=== PATIENT | female | born 1930 | race African-American/Black ===

== ENCOUNTER 2018-08-05 11:59 | Inpatient (IN) | payer OTHER, MEDICAID ==
[~2018-08-05] VITALS: Ht 167.6 cm; Wt 120.2 kg
[2018-08-05] MEDS ORDERED: AMLO2.5T45 PO (12:08)
[2018-08-05] MEDS ORDERED: SIMV5TAB53 PO (12:08)
[2018-08-05] MEDS ORDERED: NEOAPJ IM (12:08)
[2018-08-05] MEDS ORDERED: BENA5TAB6 PO (12:08)
[2018-08-05] MEDS ORDERED: SODIUM CHLORIDE 0.9% 1,000 ML IV ONE (14:25)
[2018-08-05 15:23] LABS: BASOPHILS % 0.4 % (0.0-2.0); EOSINOPHILS % 0.6 % (0.0-5.0); HEMATOCRIT. 39.7 % (36.0-48.0); LYMPHOCYTES % 18.5 % (20.0-50.0); MEAN CORPUSCULAR HEMOGLOBIN 29.5 pg (28.0-32.0); MEAN CORPUSCULAR VOLUME 89.8 fL (81.0-99.0); MONOCYTES % 6.9 % (2.0-8.0); NEUTROPHILS % 73.6 % (40.0-76.0); PLATELET 264 x1000/uL (130-400); RED BLOOD CELL COUNT 4.43 mill/uL (4.2-5.4); RED CELL DISTRIBUTION WIDTH 15.6 % (11.6-14.6)
[2018-08-05 15:26] LABS: CHLORIDE 107 mEq/L (98-107)
[2018-08-05 15:44] LABS: PARTIAL THROMBOPLASTIN TIME 24.9 sec (23.4-31.0); PROTHROMBIN TIME 10.4 sec (9.1-11.1)
[2018-08-05 18:21] LABS: CLARITY URINE CLEAR (CLEAR); COLOR URINE DARK YELLOW (YELLOW); KETONES URINE TRACE (NEGATIVE); LEUKOCYTE ESTERASE URINE NEGATIVE (NEGATIVE); NITRITE URINE NEGATIVE (NEGATIVE); OCCULT BLOOD URINE NEGATIVE (NEGATIVE); PH URINE 5.5 (4.5-8.0); PROTEIN URINE 1+ (NEGATIVE); SPECIFIC GRAVITY URINE 1.026 (1.005-1.030)
[2018-08-05 22:14] VITALS: BP 155/66
[2018-08-05] MEDS ORDERED: HYDR-4135 PO (22:25)
[2018-08-05] MEDS ORDERED: ALLO100T PO (22:33)
[2018-08-06] VITALS: BP 159/75
[2018-08-06 04:00] VITALS: BP 148/76
[2018-08-06 07:14] LABS: T4 FREE 0.65 ng/dL (0.76-1.46)
[2018-08-06] MEDS: ALLOPURINOL 100 MG TABLET PO SCH (08:50)
[2018-08-06] MEDS: AMLODIPINE 10MG TABLET PO SCH (08:51)
[2018-08-06] MEDS: HYDRALAZINE HCL 50MG TABLET PO SCH ×2 (08:52→21:18)
[2018-08-06] MEDS: BENAZEPRIL 10MG TABLET PO SCH (08:52)
[2018-08-06] MEDS ORDERED: MEDICATION NOT ON FORMULARY EA (Simvastatin 20 MG) PO SCH (09:00)
[2018-08-06 10:31] VITALS: BP 156/66
[2018-08-06 12:00] VITALS: BP_SYST 132; BP_SYST 138; BP_DIAS 63; BP_DIAS 68
[2018-08-06 16:00] VITALS: BP 126/61
[2018-08-06 16:47] LABS: HEMATOCRIT 39.1 % (36.0-48.0); HEMOGLOBIN 12.7 g/dL (12.0-16.0); MEAN CORPUSCULAR HEMOGLOBIN 29.3 pg (28.0-32.0); MEAN CORPUSCULAR VOLUME 89.9 fL (81.0-99.0); PLATELET 248 x1000/uL (130-400); RED BLOOD CELL COUNT 4.35 mill/uL (4.2-5.4)
[2018-08-06] MEDS: HYDROCORTISONE 20MG TABLET PO SCH (17:14)
[2018-08-06] MEDS ORDERED: ACETAMINOPHEN 650MG SUPP PR PRN (17:45)
[2018-08-06] MEDS ORDERED: ACETAMINOPHEN 325MG TABLET PO PRN (17:45)
[2018-08-06] MEDS ORDERED: DIPHENHYDRAMINE 50MG/ML VIAL IV PRN (17:45)
[2018-08-06] MEDS ORDERED: CLONIDINE 0.1MG TABLET PO PRN (17:45)
[2018-08-06] MEDS ORDERED: HYDROCODONE/ACETAMINOPHEN 5/325MG TABLET PO PRN (18:35)
[2018-08-06 20:00] VITALS: BP 114/63
[2018-08-06] MEDS ORDERED: ATORVASTATIN CALCIUM 10MG TABLET PO SCH (21:00)
[2018-08-07] VITALS: BP 110/61
[2018-08-07 04:00] VITALS: BP_SYST 108; BP_SYST 142; BP_SYST 143; BP_DIAS 56; BP_DIAS 65; BP_DIAS 67
[2018-08-07 06:47] LABS: HEMATOCRIT 38.9 % (36.0-48.0); HEMOGLOBIN 12.7 g/dL (12.0-16.0); MEAN CORPUSCULAR HEMOGLOBIN 29.4 pg (28.0-32.0); MEAN CORPUSCULAR VOLUME 90.2 fL (81.0-99.0); PLATELET 249 x1000/uL (130-400); RED BLOOD CELL COUNT 4.31 mill/uL (4.2-5.4); RED CELL DISTRIBUTION WIDTH 15.9 % (11.6-14.6)
[2018-08-07 08:00] VITALS: BP 138/68
[2018-08-07] MEDS: HYDROCORTISONE 20MG TABLET PO SCH ×2 (09:00→16:14)
[2018-08-07] MEDS: BENAZEPRIL 10MG TABLET PO SCH (09:00)
[2018-08-07] MEDS: AMLODIPINE 10MG TABLET PO SCH (09:30)
[2018-08-07] MEDS: ALLOPURINOL 100 MG TABLET PO SCH (09:30)
[2018-08-07] MEDS: HYDRALAZINE HCL 50MG TABLET PO SCH (09:31)
[2018-08-07 12:00] VITALS: BP 108/60
[2018-08-07 16:00] VITALS: BP 138/72
[2018-08-07 17:23] VITALS: BP 138/72
== END 2018-08-07 19:07 | disposition home or self-care (01) | DRG 73 ==
LOC: ER 11:59 → 8WST 16:39 → ENRESERV 20:29
PROVIDERS: ADMIT Internal Medicine; ATTEND Internal Medicine
DX: G90.8 Other disorders of autonomic nervous system (principal); G93.6 Cerebral edema; Z68.41 Body mass index [BMI] 40.0-44.9, adult; D32.9 Benign neoplasm of meninges, unspecified; E78.5 Hyperlipidemia, unspecified; E66.9 Obesity, unspecified; M10.9 Gout, unspecified; N18.9 Chronic kidney disease, unspecified; E78.00 Pure hypercholesterolemia, unspecified; H54.7 Unspecified visual loss; M19.90 Unspecified osteoarthritis, unspecified site; I12.9 Hypertensive chronic kidney disease with stage 1 through stage 4 chronic kidney disease, or unspecified chronic kidney disease; D49.2 Neoplasm of unspecified behavior of bone, soft tissue, and skin
CPT/HCPCS: 36415; 70551; 71045; 80048; 80061; 82533; 83036; 83880; 84146; 84439; 84443; 84484; 84550; 85027; 93005; 93970; 96360; 97162; 97166; 97535; 99285; J7030

== ENCOUNTER 2018-10-14 13:12 | Emergency (ER) | payer MEDICAID, OTHER ==
[~2018-10-14] VITALS: Ht 167.6 cm; Wt 100.0 kg
[~2018-10-14 13:12] MED LIST: AMLO2.5T45 PO; BENA5TAB6 PO; HYDR-4135 PO; SIMV5TAB53 PO
[2018-10-14] MEDS ORDERED: ONDANSETRON HCL 4MG/2ML INJ IV STA (13:37)
[2018-10-14] MEDS ORDERED: SODIUM CHLORIDE 0.9% 1,000 ML IV ONE (13:37)
[2018-10-14 14:16] LABS: BASOPHILS % 0.4 % (0.0-2.0); EOSINOPHILS % 3.5 % (0.0-5.0); HEMATOCRIT. 40.4 % (36.0-48.0); HEMOGLOBIN. 13.4 g/dL (12.0-16.0); LYMPHOCYTES % 25.3 % (20.0-50.0); MEAN CORPUSCULAR HEMOGLOBIN 29.5 pg (28.0-32.0); MEAN CORPUSCULAR VOLUME 88.8 fL (81.0-99.0); MEAN PLATELET VOLUME 9.1 fl (7.4-10.4); MONOCYTES % 8.1 % (2.0-8.0); NEUTROPHILS % 62.7 % (40.0-76.0); PLATELET 242 x1000/uL (130-400); RED BLOOD CELL COUNT 4.55 mill/uL (4.2-5.4); RED CELL DISTRIBUTION WIDTH 15.5 % (11.6-14.6)
[2018-10-14 14:24] LABS: INR 1.1; PROTHROMBIN TIME 10.9 sec (9.6-11.0)
[2018-10-14 14:25] LABS: CHLORIDE 106 mEq/L (98-107)
[2018-10-14 15:29] VITALS: BP 126/67
[2018-10-14 15:37] LABS: CLARITY URINE CLEAR (CLEAR); COLOR URINE YELLOW (YELLOW); KETONES URINE NEGATIVE (NEGATIVE); LEUKOCYTE ESTERASE URINE NEGATIVE (NEGATIVE); NITRITE URINE NEGATIVE (NEGATIVE); OCCULT BLOOD URINE NEGATIVE (NEGATIVE); PROTEIN URINE NEGATIVE (NEGATIVE); SPECIFIC GRAVITY URINE 1.016 (1.005-1.030)
== END 2018-10-14 16:31 | disposition home or self-care (01) ==
LOC: ER 13:12
DX: R11.2 Nausea with vomiting, unspecified (principal); I10 Essential (primary) hypertension; E78.00 Pure hypercholesterolemia, unspecified; M19.90 Unspecified osteoarthritis, unspecified site
CPT/HCPCS: 36415; 71045; 80053; 81003; 83605; 83880; 84484; 85025; 85610; 93005; 96361; 96374; 99284; J2405; J7030

== ENCOUNTER 2018-10-15 18:19 | Inpatient (IN) | payer OTHER ==
[~2018-10-15] VITALS: Ht 175.3 cm; Wt 95.3 kg
[2018-10-15] MEDS ORDERED: SODIUM CHLORIDE 0.9% 1,000 ML IV ONE (21:03)
[2018-10-15] MEDS ORDERED: ONDANSETRON HCL 4MG/2ML INJ IV STA (21:03)
[2018-10-15 21:53] LABS: BASOPHILS % 0.3 % (0.0-2.0); EOSINOPHILS % 2.2 % (0.0-5.0); HEMATOCRIT. 39.7 % (36.0-48.0); HEMOGLOBIN. 13.1 g/dL (12.0-16.0); LYMPHOCYTES % 19.9 % (20.0-50.0); MEAN CORPUSCULAR HEMOGLOBIN 29.8 pg (28.0-32.0); MEAN CORPUSCULAR VOLUME 90.2 fL (81.0-99.0); MEAN PLATELET VOLUME 9.1 fl (7.4-10.4); MONOCYTES % 8.6 % (2.0-8.0); PLATELET 226 x1000/uL (130-400); RED CELL DISTRIBUTION WIDTH 15.5 % (11.6-14.6)
[2018-10-15 21:58] LABS: CHLORIDE 107 mEq/L (98-107)
[2018-10-15 21:59] LABS: PROTHROMBIN TIME 10.7 sec (9.6-11.0)
[2018-10-15 23:56] LABS: CLARITY URINE CLOUDY (CLEAR); COLOR URINE DARK YELLOW (YELLOW); KETONES URINE TRACE (NEGATIVE); LEUKOCYTE ESTERASE URINE 1+ (NEGATIVE); NITRITE URINE POSITIVE (NEGATIVE); OCCULT BLOOD URINE 2+ (NEGATIVE); PROTEIN URINE TRACE (NEGATIVE)
[2018-10-16] MEDS ORDERED: CEFTRIAXONE 1 G PREMIX 50 ML IV SCH (03:00)
[2018-10-16 03:35] VITALS: BP 180/91
[2018-10-16 04:23] VITALS: BP 180/91
[2018-10-16] MEDS ORDERED: ALLO100T PO (04:36)
[2018-10-16] MEDS ORDERED: NON FORMULARY PATIENT HOME MED XX SCH (05:15)
[2018-10-16] MEDS ORDERED: ONDANSETRON HCL 4MG/2ML INJ IV PRN (05:15)
[2018-10-16] MEDS ORDERED: CLONIDINE 0.1MG TABLET PO PRN (05:15)
[2018-10-16] MEDS: HYDRALAZINE HCL 50MG TABLET PO SCH ×5 (06:29→21:08)
[2018-10-16 08:00] VITALS: BP 139/44
[2018-10-16] MEDS: ALLOPURINOL 100 MG TABLET PO SCH ×3 (09:00→18:15)
[2018-10-16] MEDS: AMLODIPINE 10MG TABLET PO SCH (10:00)
[2018-10-16 12:00] VITALS: BP 145/52
[2018-10-16] MEDS ORDERED: PNEUMOCOCCAL 23-VAL P-SAC VAC 0.5 ML IM ONE (12:00)
[2018-10-16 16:00] VITALS: BP 183/79
[2018-10-16] MEDS ORDERED: METOPROLOL TARTRATE 25MG TABLET PO NR (16:15)
[2018-10-16] MEDS: INSULIN LISPRO 100 UNITS/ML SUBCUT SCH ×2 (17:15→21:07)
[2018-10-16] MEDS: BLOOD SUGAR DIAGNOSTIC STRIP TEST SCH ×2 (18:05→21:03)
[2018-10-16] MEDS: DEXAMETHASONE 4MG/ML 1ML VIAL IV SCH ×2 (18:16→23:54)
[2018-10-16 20:00] VITALS: BP 148/65
[2018-10-16] MEDS: PIPERACILLIN/TAZ 3.375G PREMIX 50 ML IV SCH ×2 (20:56→23:53)
[2018-10-16] MEDS: LEVETIRACETAM 500 MG in SODIUM CHLORIDE 0.9% 100 ML IV SCH (20:56)
[2018-10-16] MEDS: ATORVASTATIN CALCIUM 10MG TABLET PO SCH (20:56)
[2018-10-16] MEDS: METOPROLOL TARTRATE 25MG TABLET PO SCH (20:57)
[2018-10-17] VITALS: BP 107/35
[2018-10-17 04:00] VITALS: BP 130/45
[2018-10-17] MEDS: DEXAMETHASONE 4MG/ML 1ML VIAL IV SCH ×3 (06:33→17:02)
[2018-10-17] MEDS: HYDRALAZINE HCL 50MG TABLET PO SCH ×3 (06:33→21:58)
[2018-10-17] MEDS: BLOOD SUGAR DIAGNOSTIC STRIP TEST SCH ×4 (06:34→21:55)
[2018-10-17] MEDS: INSULIN LISPRO 100 UNITS/ML SUBCUT SCH ×4 (06:34→21:55)
[2018-10-17] MEDS: PIPERACILLIN/TAZ 3.375G PREMIX 50 ML IV SCH ×3 (06:39→22:06)
[2018-10-17 08:00] VITALS: BP 159/87
[2018-10-17] MEDS: AMLODIPINE 10MG TABLET PO SCH (09:18)
[2018-10-17] MEDS: LEVETIRACETAM 500 MG in SODIUM CHLORIDE 0.9% 100 ML IV SCH ×2 (09:18→21:58)
[2018-10-17] MEDS: METOPROLOL TARTRATE 25MG TABLET PO SCH ×2 (09:18→21:59)
[2018-10-17] MEDS: ALLOPURINOL 100 MG TABLET PO SCH ×2 (09:18→17:00)
[2018-10-17 09:54] LABS: BASOPHILS % 0.1 % (0.0-2.0); HEMATOCRIT. 40.6 % (36.0-48.0); HEMOGLOBIN. 13.5 g/dL (12.0-16.0); LYMPHOCYTES % 16.6 % (20.0-50.0); MEAN CORPUSCULAR HEMOGLOBIN 29.7 pg (28.0-32.0); MEAN PLATELET VOLUME 9.4 fl (7.4-10.4); MONOCYTES % 1.3 % (2.0-8.0); PLATELET 249 x1000/uL (130-400); RED BLOOD CELL COUNT 4.56 mill/uL (4.2-5.4); RED CELL DISTRIBUTION WIDTH 15.6 % (11.6-14.6)
[2018-10-17 12:00] VITALS: BP 145/64
[2018-10-17 16:00] VITALS: BP 125/51
[2018-10-17 20:00] VITALS: BP 136/52
[2018-10-17] MEDS: ATORVASTATIN CALCIUM 10MG TABLET PO SCH (21:58)
[2018-10-18] MEDS: DEXAMETHASONE 4MG/ML 1ML VIAL IV SCH ×4 (00:26→17:37)
[2018-10-18 04:00] VITALS: BP 138/52
[2018-10-18] MEDS: PIPERACILLIN/TAZ 3.375G PREMIX 50 ML IV SCH ×3 (05:59→22:28)
[2018-10-18] MEDS: HYDRALAZINE HCL 50MG TABLET PO SCH ×3 (05:59→22:29)
[2018-10-18] MEDS: BLOOD SUGAR DIAGNOSTIC STRIP TEST SCH ×4 (06:10→21:30)
[2018-10-18] MEDS: INSULIN LISPRO 100 UNITS/ML SUBCUT SCH ×4 (06:10→21:00)
[2018-10-18 08:00] VITALS: BP 140/60
[2018-10-18] MEDS: AMLODIPINE 10MG TABLET PO SCH (09:34)
[2018-10-18] MEDS: METOPROLOL TARTRATE 25MG TABLET PO SCH ×2 (09:34→21:23)
[2018-10-18] MEDS: ALLOPURINOL 100 MG TABLET PO SCH ×2 (09:34→17:37)
[2018-10-18] MEDS: LEVETIRACETAM 500 MG in SODIUM CHLORIDE 0.9% 100 ML IV SCH ×2 (09:35→21:20)
[2018-10-18 12:00] VITALS: BP 138/75
[2018-10-18 16:00] VITALS: BP 103/52
[2018-10-18] MEDS ORDERED: LACTULOSE 20G/30ML UDC PO NR (17:15)
[2018-10-18 20:00] VITALS: BP 144/60
[2018-10-18] MEDS: ATORVASTATIN CALCIUM 10MG TABLET PO SCH (21:23)
[2018-10-19] VITALS: BP 127/67
[2018-10-19] MEDS: DEXAMETHASONE 4MG/ML 1ML VIAL IV SCH ×4 (00:24→17:36)
[2018-10-19 04:00] VITALS: BP 154/90
[2018-10-19] MEDS: PIPERACILLIN/TAZ 3.375G PREMIX 50 ML IV SCH ×3 (06:12→22:00)
[2018-10-19] MEDS: HYDRALAZINE HCL 50MG TABLET PO SCH ×3 (06:14→22:00)
[2018-10-19] MEDS: BLOOD SUGAR DIAGNOSTIC STRIP TEST SCH ×4 (06:15→20:35)
[2018-10-19] MEDS: INSULIN LISPRO 100 UNITS/ML SUBCUT SCH ×4 (06:21→20:36)
[2018-10-19 08:00] VITALS: BP 164/65
[2018-10-19] MEDS: METOPROLOL TARTRATE 25MG TABLET PO SCH ×2 (09:00→21:00)
[2018-10-19] MEDS: AMLODIPINE 10MG TABLET PO SCH (10:37)
[2018-10-19] MEDS: LEVETIRACETAM 500 MG in SODIUM CHLORIDE 0.9% 100 ML IV SCH ×2 (10:38→21:00)
[2018-10-19] MEDS: ALLOPURINOL 100 MG TABLET PO SCH ×2 (10:38→17:00)
[2018-10-19 12:10] VITALS: BP 144/60
[2018-10-19] MEDS: ATORVASTATIN CALCIUM 10MG TABLET PO SCH (21:00)
[2018-10-20] VITALS: BP 139/61
[2018-10-20] MEDS: DEXAMETHASONE 4MG/ML 1ML VIAL IV SCH ×5 (01:16→23:41)
[2018-10-20 04:00] VITALS: BP 141/54
[2018-10-20] MEDS: HYDRALAZINE HCL 50MG TABLET PO SCH ×3 (06:01→22:02)
[2018-10-20] MEDS: PIPERACILLIN/TAZ 3.375G PREMIX 50 ML IV SCH ×3 (06:02→23:41)
[2018-10-20] MEDS: INSULIN LISPRO 100 UNITS/ML SUBCUT SCH ×4 (06:21→21:00)
[2018-10-20] MEDS: BLOOD SUGAR DIAGNOSTIC STRIP TEST SCH ×4 (06:21→21:56)
[2018-10-20 08:00] VITALS: BP 146/60
[2018-10-20] MEDS: LEVETIRACETAM 500 MG in SODIUM CHLORIDE 0.9% 100 ML IV SCH ×2 (09:54→22:02)
[2018-10-20] MEDS: ALLOPURINOL 100 MG TABLET PO SCH ×2 (09:55→17:00)
[2018-10-20] MEDS: METOPROLOL TARTRATE 25MG TABLET PO SCH ×2 (09:55→21:00)
[2018-10-20] MEDS: AMLODIPINE 10MG TABLET PO SCH (09:55)
[2018-10-20 12:00] VITALS: BP 131/52
[2018-10-20 16:00] VITALS: BP 135/57
[2018-10-20] MEDS: ATORVASTATIN CALCIUM 10MG TABLET PO SCH (22:01)
[2018-10-21] VITALS: BP 148/59
[2018-10-21 04:00] VITALS: BP 150/49
[2018-10-21] MEDS: DEXAMETHASONE 4MG/ML 1ML VIAL IV SCH ×2 (05:58→12:28)
[2018-10-21] MEDS: PIPERACILLIN/TAZ 3.375G PREMIX 50 ML IV SCH (05:59)
[2018-10-21] MEDS: HYDRALAZINE HCL 50MG TABLET PO SCH ×2 (06:00→15:15)
[2018-10-21] MEDS: BLOOD SUGAR DIAGNOSTIC STRIP TEST SCH (06:14)
[2018-10-21] MEDS: INSULIN LISPRO 100 UNITS/ML SUBCUT SCH ×2 (06:14→12:29)
[2018-10-21 08:00] VITALS: BP 150/61
[2018-10-21] MEDS: ALLOPURINOL 100 MG TABLET PO SCH (09:15)
[2018-10-21] MEDS: METOPROLOL TARTRATE 25MG TABLET PO SCH (09:15)
[2018-10-21] MEDS: AMLODIPINE 10MG TABLET PO SCH (09:15)
[2018-10-21] MEDS: LEVETIRACETAM 500 MG in SODIUM CHLORIDE 0.9% 100 ML IV SCH (09:17)
[2018-10-21 12:00] VITALS: BP 153/60
[2018-10-21 14:47] VITALS: BP 124/44
[2018-10-21 16:00] VITALS: BP 124/44
== END 2018-10-21 17:41 | disposition hospice, home (50) | DRG 177 ==
LOC: ER 18:19 → 5WST 23:52 → EDBEDREQTM 23:56 → EDBEDREQ 23:56 → ENRESERV 10-16 02:04
PROVIDERS: ADMIT Internal Medicine; ATTEND Internal Medicine
DX: J69.0 Pneumonitis due to inhalation of food and vomit (principal); G93.41 Metabolic encephalopathy; N39.0 Urinary tract infection, site not specified; D68.59 Other primary thrombophilia; I82.511 Chronic embolism and thrombosis of right femoral vein; I82.531 Chronic embolism and thrombosis of right popliteal vein; D32.9 Benign neoplasm of meninges, unspecified; G90.8 Other disorders of autonomic nervous system; Z51.5 Encounter for palliative care; Z66 Do not resuscitate; I10 Essential (primary) hypertension; M19.90 Unspecified osteoarthritis, unspecified site; E78.00 Pure hypercholesterolemia, unspecified; E78.5 Hyperlipidemia, unspecified; H54.7 Unspecified visual loss; M10.9 Gout, unspecified
CPT/HCPCS: 36415; 71045; 80048; 82962; 83605; 83880; 84484; 90732; 93005; 93970; 96361; 96374; 99285; J0696; J1100; J1815; J1953; J2405; J2543; J7030; J7040; J7050